=== PATIENT | female | born 1980 | race Caucasian/White ===

== ENCOUNTER 2017-06-12 06:05 | Day surgery (SDC) | payer OTHER ==
[2017-06-12 06:46] LABS: HEMOGLOBIN 15.5 g/dl (12.0-16.0); MEAN CORPUSCULAR HGB CONC 34.4 g/dl (32.0-36.5); PLATELET COUNT, AUTOMATED 214 10^3/uL (150-450); RED BLOOD COUNT 5.17 10^6/uL (4.00-5.40); RED CELL DISTRIBUTION WIDTH 11.7 % (11.5-14.5); WHITE BLOOD COUNT 6.6 10^3/uL (4.0-10.0)
[2017-06-12] MEDS: LR 1,000 ML IV ×4 (06:55→17:32)
[2017-06-12 06:58] LABS: CONTROL LINE UCG INT CTR LINE PRESENT; URINE PREG TEST NEGATIVE (NEGATIVE)
[2017-06-12] MEDS ORDERED: PROPOFOL 200 MG/20 ML VIAL As Ordered (07:14)
[2017-06-12] MEDS ORDERED: MIDAZOLAM INJ 2 MG/2 ML VIAL (J2250) As Ordered (07:14)
[2017-06-12] MEDS ORDERED: fentaNYL 100 MCG/2 ML INJECTION (J3010) As Ordered ×2 (07:14→08:10)
[2017-06-12] MEDS ORDERED: ONDANSETRON 4MG/2ML VIAL (J2405) As Ordered (07:14)
[2017-06-12] MEDS ORDERED: LIDOCAINE 2% INJ 100 MG/5 ML SDV (FOR ANES.) As Ordered (07:14)
[2017-06-12] MEDS ORDERED: METOCLOPRAMIDE INJ 10MG/2ML VIAL (J2765) As Ordered ×2 (07:14→10:15)
[2017-06-12] MEDS ORDERED: ROCURONIUM BROMIDE 50 MG/5 ML VIAL As Ordered (07:14)
[2017-06-12] MEDS: HEPARIN SOD (PORCINE) 5000 UNITS/ML VIAL SQ (07:43)
[2017-06-12] MEDS ORDERED: NEOSTIGMINE 10 MG/10 ML VIAL (J2710) As Ordered (08:55)
[2017-06-12] MEDS ORDERED: KETOROLAC 60 MG/2 ML VIAL (J1885) As Ordered (08:55)
[2017-06-12] MEDS ORDERED: HYDROmorphone HCL 2 MG/ML 1ML VIAL (J1170) As Ordered (08:55)
[2017-06-12] MEDS ORDERED: GLYCOPYRROLATE INJ 0.2 MG/ML 2 ML VIAL As Ordered (08:55)
[2017-06-12] MEDS ORDERED: MORPHINE 1MG/ML IN 0.9% NACL 100ML IV BAG As Ordered (09:26)
[2017-06-12] MEDS: MORPHINE 1MG/ML IN 0.9% NACL 100ML IV BAG IV (09:40)
[2017-06-12] MEDS: ONDANSETRON 4MG/2ML VIAL (J2405) IV ×2 (09:41→17:00)
[2017-06-12] MEDS: fentaNYL 100 MCG/2 ML INJECTION (J3010) IV ×4 (09:41→09:59)
[2017-06-12] MEDS ORDERED: EPIDURAL/PCA KEYS XX (09:45)
[2017-06-12] MEDS ORDERED: IBUPROFEN 600 MG TAB PO (09:45)
[2017-06-12] MEDS ORDERED: NALBUPHINE HCL 10 MG/ML AMP (J2300) IV (09:45)
[2017-06-12] MEDS ORDERED: NALOXONE INJ 0.4 MG/1 ML VIAL (J2310) IV (09:45)
[2017-06-12] MEDS ORDERED: NORCO, ANEXSIA 5/325MG TABLET (HYDROcodone/ACETAMINOPHEN) PO (09:45)
[2017-06-12] MEDS: METOCLOPRAMIDE INJ 10MG/2ML VIAL (J2765) IV (10:25)
[2017-06-12] MEDS ORDERED: PROMETHAZINE INJ 25 MG/ML VIAL (J2550) As Ordered (10:36)
[2017-06-12] MEDS: PROMETHAZINE INJ 25 MG/ML VIAL (J2550) IV (10:44)
[2017-06-13] MEDS: diphenhydrAMINE INJ 50MG/ML VIAL (J1200) IV (00:36)
[2017-06-13] MEDS: LR 1,000 ML IV ×2 (00:36→09:45)
[2017-06-13] MEDS: ONDANSETRON 4MG/2ML VIAL (J2405) IV (02:40)
[2017-06-13] MEDS: PROMETHAZINE INJ 25 MG/ML VIAL (J2550) IV (06:20)
[2017-06-13 07:01] LABS: HEMATOCRIT 33.6 % (36.0-47.0); MEAN CORPUSCULAR HEMOGLOBIN 30.3 pg (27.0-33.0); MEAN CORPUSCULAR HGB CONC 34.2 g/dl (32.0-36.5); MEAN CORPUSCULAR VOLUME 88.4 fl (80.0-96.0); PLATELET COUNT, AUTOMATED 139 10^3/uL (150-450); RED CELL DISTRIBUTION WIDTH 11.7 % (11.5-14.5); WHITE BLOOD COUNT 5.5 10^3/uL (4.0-10.0)
[2017-06-13 07:05] LABS: HEMOGLOBIN 11.5 g/dl (12.0-16.0)
[2017-06-13] MEDS: NORCO, ANEXSIA 5/325MG TABLET (HYDROcodone/ACETAMINOPHEN) PO ×2 (09:20→13:34)
== END 2017-06-13 13:47 | disposition home or self-care (01) ==
LOC: M SDC 06:05 → M MS4PR 12:10
DX: N94.10 Unspecified dyspareunia (principal); N92.0 Excessive and frequent menstruation with regular cycle; N85.8 Other specified noninflammatory disorders of uterus; I10 Essential (primary) hypertension; R01.1 Cardiac murmur, unspecified; G43.909 Migraine, unspecified, not intractable, without status migrainosus; Z86.718 Personal history of other venous thrombosis and embolism; R32 Unspecified urinary incontinence; K58.9 Irritable bowel syndrome, unspecified; M17.0 Bilateral primary osteoarthritis of knee; M47.812 Spondylosis without myelopathy or radiculopathy, cervical region; L71.9 Rosacea, unspecified; F32.9 Major depressive disorder, single episode, unspecified; F41.9 Anxiety disorder, unspecified; F17.210 Nicotine dependence, cigarettes, uncomplicated; Z88.1 Allergy status to other antibiotic agents; Z88.8 Allergy status to other drugs, medicaments and biological substances
CPT/HCPCS: 58262